=== PATIENT | female | born 2000 | race Caucasian/White ===

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

== ENCOUNTER 2021-01-14 15:26 | Emergency (ER) | payer BC, MEDICAID, SELFPAY ==
[2021-01-14 15:32] VITALS: BP 137/106; PULSE 109; RESP 18; TEMP 36.6; O2SAT 99; BMI 34.4
--- NOTE | 2021-01-14 16:04 | ED_ITS ---
HPI - Skin/Abscess/Foreign Bdy General: Chief complaint: Skin/Abscess/Foreign Body Stated complaint: BURNING RASH ON FACE Time Seen by Provider: 01/14/21 15:39 History of Present Illness: HPI narrative: Patient is a 20-year-old female comes to the ED with rash in between nose and top of mouth. Symptoms started proximately a week and a half ago. She had red pimple only like rash just above her mouth. She went and saw her PCP and they gave her some mupirocin. After taking that for couple days the rash continued to get worse. She then went back and saw her PCP approximately 3 days ago when they told her to stop the mupirocin and they gave her a prescription for amoxicillin and acyclovir. Patient's rash has not improved yet. She states she has never had a rash like this before. She did just recently start a job before this rash started and she has to wear a mask all the time which is unusual for her that could have caused the rash. Associated symptoms: Deny chills, fever(s), nausea or vomiting Review of Systems Const: Denies: fever(s), chills or fatigue Eyes: Denies: change in vision or eye discomfort ENMT: Denies: throat pain, odynophagia, nasal discharge or nasal congestion Card: Denies: chest pain, palpitations, edema, swelling of feet/ankles, dyspnea on exertion or orthopnea Resp: Denies: dyspnea, productive cough or non-productive cough GI: Denies: abdominal pain, nausea, vomiting, diarrhea, constipation or hematochezia : Denies: flank pain, dysuria or hematuria Musc: Denies: neck pain, back pain or extremity swelling Skin/Breast: Reports: rash (between mouth and nose) and erythema (between mouth and nose); Denies: new lesions Neuro: Denies: headache(s), numbness in extremities or weakness in extremities Physical Exam Const: COMMON NORMALS: no acute distress, patient oriented x3, healthy appearing and alert GENERAL APPEARANCE: cooperative and comfortable HENMT: COMMON NORMALS: normocephalic HEAD & SCALP: normocephalic FACE & SINUS: erythema bilaterally upper lip (Perioral dermatitis.) MOUTH: Normal oral and palatal mucosa present THROAT: posterior oropharynx normal and uvula midline Neck/C-Spine: COMMON NORMALS: supple GENERAL: Yes normal visual inspection Resp: COMMON NORMALS: normal respiratory effort, No retractions, No use of accessory muscles and clear to auscultation bilaterally AUSCULTATION: clear to auscultation bilaterally Cardio: COMMON NORMALS: regular rate, regular rhythm, S1 normal heart sound present, S2 normal heart sound present, No gallops present (Cardio), No clicks present (Cardio), No murmurs present (Cardio) and Peripheral pulses 2+ throughout RATE: regular rate RHYTHM: regular rhythm HEART SOUNDS: S1 normal heart sound present and S2 normal heart sound present PERIPHERAL PULS ES: Peripheral pulses 2+ throughout GI: COMMON NORMALS: Normal to inspection, nondistended, normoactive bowel sounds present, Soft to palpation, non-tender and no masses PALPATION: Yes Soft to palpation : COMMON NORMALS: Yes no CVA tenderness BLADDER/KIDNEY EXAM: Yes no CVA tenderness Back/Pelvis: COMMON NORMALS: no CVA tenderness Extremity: COMMON NORMALS: normal to inspection Neuro: COMMON NORMALS: patient oriented x3 SENSORIUM/ORIENTATION: Yes alert Skin: NARRATIVE SKIN EXAM: Patient has erythema with a multitude of raised small pustules. Findings suggestive of perioral dermatitis. GENERAL SKIN EXAM: dry skin Course Vital Signs: Vital signs: Vital Signs Temperature 97.9 F 01/14/21 15:32 Pulse Rate 109 H 01/14/21 15:32 Respiratory Rate 18 01/14/21 15:32 Blood Pressure 137/106 01/14/21 15:32 Pulse Oximetry 99 01/14/21 15:32 MDM - Skin/Abscess/Foreign Bdy MDM Narrative: Medical decision making narrative: Patient is an 19-year-old female comes to the ED with a rash on her upper lip. Rash has been going on for a week and a half. Exam findings suggestive of perioral dermatitis. Patient appears nontoxic and in no acute distress. Vitals are stable. Patient discharged home in sent with a prescription for clindamycin 1% lotion and doxycycline. Follow-up PCP in 7 to 10 days for reevaluation. Patient understood and agree with plan. Discharge Plan Discharge Patient Disposition: Home Clinical Impression: Perioral dermatitis Condition: Stable Prescriptions: New doxycycline hyclate 100 mg capsule 100 mg PO BID 10 Days Qty: 20 RF: 0 clindamycin phosphate 1 % lotion 1 applic topical DAILY PRN (Reason: rash) Qty: 60 RF: 0 Discharge Orders: Discharge ED (Routine); Ordered 01/14/21 Ordered By: Hiren Walker Referrals: Giovanna Duggan FNP [Primary Care Provider] - Discharge Diet: Regular Discharge Activity: Resume usual activity Patient Instructions: Dermatitis (ED) Activity Restrictions/Additional Instructions: Follow-up with medical provider as directed in 7 to 10 days reevaluation. Take medications as prescribed. You can stop taking the prescribed amoxicillin and acyclovir. Return to the ER or your medical provider if condition worsens. Please read and understand discharge instructions. Thank you for choosing [facility] for your healthcare needs today. Please realize this is an emergency room and that we are providing you with a medical screening exam and this may not be complete and all inclusive of all the testing and or work up that you may need to determine your ailment or severity of your illness. It is very important that you follow up as instructed or that you return to the Emergency Department should you have concerns or if your condition changes or worsens in any way. Coding Level of Care Code ED Radiology Transcriptionist for Maurice Fwd Exam Comprehensive
== END 2021-01-14 16:37 | disposition home or self-care (01) ==
PROVIDERS: Emergency Provider Physician Assistant; PCP Nurse Practitioner Family
DX: L71.0 Perioral dermatitis (principal)
CPT/HCPCS: 99282

== ENCOUNTER 2021-02-01 14:57 | Emergency (ER) | payer BC, MEDICAID, SELFPAY ==
--- NOTE | 2021-02-01 15:11 | PC.NURSE ---
PPE DAWNED EKG PERFORMED.
[2021-02-01 15:14] VITALS: BP 133/89; PULSE 112; RESP 20; TEMP 36.7; O2SAT 100; BMI 34.6
--- NOTE | 2021-02-01 15:40 | ED_ITS ---
HPI - General Adult General: Chief complaint: Chest Pain Stated complaint: Chest Tightness, High BP Time Seen by Provider: 02/01/21 15:20 History of Present Illness: HPI narrative: CC: Chest Pain HPI: This is a [20] yo patient hx of marijuana use presenting to the ED complaining of L sided sharp chest pain with radiation to the L shoulder at 7am. No associated with shortness of breath, chest pain or dyspnea on exertion. Pain is not tearing in nature and does not radiate to the back. Pain not associated with vomiting or PO intake. Denies any recent sympathomimetic drug use. Patient denies any cough. Denies palpitations, dysphagia, diaphoresis, radiation of pain to bilateral arms, jaw. Denies F/N/V/D. Patient denies any recent immobility, surgery, unilateral leg swelling, or prior PE. Patient denies any orthopnea. Onset: 1 day ago Duration: 2 episodes in the last day Location: home Severity: mild/moderate Review of Systems Narrative: Constitutional: No fever, no chills. HEENT: No vision changes, no sore throat. CV: +chest pain, no palpitations. PULM: No cough, No dyspnea. GI: No abdominal pain, no N/V/D. : No dysuria, no frequency, no hematuria. MSKEL: No arthralgias, no edema. SKIN: No new rashes, no lesions. NEURO: No headache, no focal weakness. HEME: No easy bleeding or bruising. PSYCH: No change in mood or affect. PFS ED PFSH: Medical History (Updated 02/06/21 @ 11:15 by Jessi Galdamez APRN) Encounter for tobacco use cessation counseling Family History (Updated 02/06/21 @ 10:11 by Christina Cox LPN) Other Family history of premature coronary artery disease Hypertension Stroke Female Reproductive History: Date of last menstrual period: 01/30/21 Physical Exam Narrative: EXAM NARRATIVE: Head: Atraumatic, normocephalic Eyes: PERRL, EOMI, conjunctiva without injection ENT: Throat without erythema, lesions or exudate, MMM NECK: Supple, trachea midline, no JVD LUNGS: LCTA CV: Sinus tachycardia, S1,S2, no murmurs, rubs, gallops. 2+ peripheral pulses in UEs ABDOMEN: Soft, nontender, nondistended, BS x4, no rigidity, no guarding, no rebound EXTREMITY: Normal ROM, no pitting edema, no calf tenderness to palpation SKIN: No rash or erythema NEURO: Awake and alert. No focal motor deficits. PSYCH: Normal mood and affect. Course Vital Signs: Vital signs: Vital Signs Temperature 98.0 F 02/01/21 15:14 Pulse Rate 90 02/01/21 17:53 Respiratory Rate 20 H 02/01/21 17:53 Blood Pressure 116/73 02/01/21 17:53 Pulse Oximetry 100 02/01/21 17:53 MDM - General Adult MDM Narrative: Medical decision making narrative: [20]yo patient w/ hx of vaping presenting to the ED with evaluation of two episodes of chest pain, most recently at 7:30am. HDS w/ mild tachycardia, pulse 2+ radially bilaterally, no signs of fluid overload, AAOx3, neuro exam intact. Given History and Exam today I have no suspicion for ACS, Pneumothorax, Pneumonia, Pulmonary Embolus, Tamponade, Aortic Dissection or other emergent problems as a cause for this presentation. Workup: ECG, CXR, CBC, BMP, Troponin Interventions: Tylenol 500mg Findings: ECG: No overt evidence of STEMI, hyperacute T waves, localizable STD or T wave inversions. No evidence of Brugada?s sign, delta wave, epsilon wave, significantly prolonged QTc, or malignant arrhythmia. No Q waves. Other Labs unremarkable for emergent problems. CXR: Without PTX, PNA, or widened mediastinum Last Stress Test: never Last Heart Catheterization: never HEART Score: 0 [5:45] On reassessment, the patient is HDS, no complaints of persistent chest pain in the ED after evaluation. ECG is non-ischemic. Workup today is unremarkable. Doubt ACS/PE or other emergent causes of chest pain. Doubt ACS/PE or other emergent causes of chest pain. No suspicion for aortic dissection given no widened mediastinum, 2+ upper extremity pulses, or tearing pain. No suspicion for PE given no pleuritic chest pain, recent immobilization or surgery hemoptysis, or other VTE risk factors. EKG is non-ischemic. XR normal. Suspect that patient is tachycardic secondary to anxiety concerns for her chest pain. Although patient is tachycardiac, I do not suspect this time that the tachycardia secondary to pulmonary embolism patient does not have lower extremity swelling, no family risk factors for hypercoagulability, no recent surgery or immobilization. Patient continued to be satting without any issues, no complaints of shortness of breath, lightheadedness today. I have given patient follow up with our correctional case records supervisor to be seen by our provider Dr. Kline as patient would like to establish care with a new PCP and evaluate chest pain. Patient aware of a call from our correctional case records supervisor to schedule for appointment(s) and verbalizes understanding of the importance of following up. Rx: Tylenol 500mg Q6Hrs x 4 days PRN pain Disposition: Discharge. Strict return precautions discussed with the patient with full understanding. Advised patient to follow up promptly with a primary care provider in 24-48 hrs if the patient has persistent symptoms. Given return instructions for any crushing/tearing chest pain, focal weakness, syncope or any new or concerning issues. Lab Data: Labs: Lab Results 02/01/21 02/01/21 02/01/21 16:03 16:03 16:03 WBC 10.7 10^3/uL 10^3 /uL (4.5-13.0) RBC 5.35 10^6/uL H 10 ^6/uL (4.1-5.3) Hgb 16.1 g/dL H g/dL (11.5-15.3) Hct 48.1 % H % (37.0-47.0) MCV 89.9 fl fl (81-99) MCH 30.1 pg pg (28.0-34.0) MCHC 33.5 g/dL g/dL (30.0-36.0) RDW 11.9 % L % (12.1-15.1) Plt Count 383 10^3/cmm 10^3 /cmm (130-400) MPV 10.5 fL H fL (7.4-10.4) Neut % (Auto) 63.7 % % Lymph % (Auto) 21.9 % % Ulster % (Auto) 10.8 % % Eos % (Auto) 2.7 % % Baso % (Auto) 0.7 % % Neut # (Auto) 6.81 10^3/uL 10^3 /uL (1.8-8.0) Lymph # (Auto) 2.3 10^3/uL 10^3/ uL (1.5-6.5) [place] # (Auto) 1.2 10^3/uL H 10^ 3/uL (0.2-0.9) Eos # (Auto) 0.3 10^3/uL 10^3/ uL (0.0-0.8) Baso # (Auto) 0.1 10^3/uL 10^3/ uL (0.0-0.1) Nucleated RBC % (a uto) 0 % % Nucleated RBCs # 0.0 /100WBC /100W BC Sodium 137 mmol/L mmol/L (136-145) Potassium 4.2 mmol/L mmol/L (3.5-5.1) Chloride 100 mmol/L mmol/L (98-107) Carbon Dioxide 24 mmol/L mmol/L (22-29) Anion Gap 17.2 (5-19) BUN 11 mg/dL mg/dL (6-20) Creatinine 0.7 mg/dL mg/dL (0.5-0.9) GFR Calculation 107.8 mL/min mL/m in (90-130) Glucose 84 mg/dL mg/dL (65-115) Calculated Osmolal ity 283 mOsm/kg L mOs m/kg (285-295) Calcium 9.4 mg/dL mg/dL (8.5-10.5) Troponin T Gen 5 n g/L 6 ng/L ng/L (0-10) Discharge Plan Discharge Patient Disposition: Home Clinical Impression: Chest pain Condition: Stable Prescriptions: No Action pantoprazole [Protonix] 40 mg tablet,delayed release (DR/EC) 40 mg PO DAILY Qty: 90 RF: 0 clindamycin phosphate 1 % lotion 1 applic topical DAILY PRN (Reason: rash) Qty: 60 RF: 0 Discharge Orders: Discharge ED (Routine); Ordered 02/01/21 Ordered By: Barak Bautista Referrals: Giovanna Duggan FNP [Primary Care Provider] - Discharge Diet: Advance as tolerated Discharge Activity: Resume usual activity Patient Instructions: Chest Pain (ED) Activity Restrictions/Additional Instructions: Come back to the emergency room if your chest pain worsens, have any fever or chills, worsening shortness of breath, worsening exertional lightheadedness, or any new or concerning complaints. Coding Level of Care Code ED Well Tester for Sissyg Kathia
--- NOTE | 2021-02-01 15:40 | ECG_ITS ---
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 Requested By: Barak Bautista Order Number: [id number] Jean MD: NORMA JASON Measurements Intervals [place] Rate: 93 P: 54 [place]: 146 QRS: 72 QRSD: 92 T: 49 QT: 338 QTc: 421 Interpretive Statements SINUS RHYTHM WITH SINUS ARRHYTHMIA POSSIBLE LEFT ATRIAL ENLARGEMENT [-0.1mV P-WAVE IN V1/V2] POSSIBLE LEFT VENTRICULAR HYPERTROPHY [VOLTAGE CRITERIA PLUS LAE OR QRS WIDENING] INTERPRETATION BASED ON A DEFAULT AGE OF 40 YEARS No previous ECG available for comparison Electronically Signed On 02-02-2021 14:35:57 SECONDARY SPECIAL EDUCATION TEACHER by NORMA JASON [id number] f
[2021-02-01 16:10] LABS: Basophils # 0.1 10^3/uL (0.0-0.1); Basophils % 0.7 %; Eosinophils # 0.3 10^3/uL (0.0-0.8); Eosinophils % 2.7 %; Hematocrit 48.1 % (37.0-47.0); Hemoglobin 16.1 g/dL (11.5-15.3); Lymphocytes # 2.3 10^3/uL (1.5-6.5); Lymphocytes % 21.9 %; Mean Corpuscular HGB Conc 33.5 g/dL (30.0-36.0); Mean Corpuscular Hemoglobin 30.1 pg (28.0-34.0); Mean Corpuscular Volume 89.9 fl (81-99); Mean Platelet Volume 10.5 fL (7.4-10.4); Monocytes # 1.2 10^3/uL (0.2-0.9); Monocytes % 10.8 %; Neutrophils # 6.81 10^3/uL (1.8-8.0); Neutrophils % 63.7 %; Nucleated Red Blood Cells % 0 %; Platelet Count 383 10^3/cmm (130-400); Red Blood Count 5.35 10^6/uL (4.1-5.3); Red Cell Distribution Width 11.9 % (12.1-15.1); White Blood Count 10.7 10^3/uL (4.5-13.0)
[2021-02-01] MEDS: acetaminophen 500 mg Tablet 1000 MG PO (16:18)
[2021-02-01] MEDS: sodium chloride 0.9% 1,000 ML 999 ML IV (16:20)
[2021-02-01 16:22] VITALS: BP 130/89; RESP 18; O2SAT 98
--- NOTE | 2021-02-01 16:30 | PC.NURSE ---
Bilateral blood pressures taken. RUE 130/89, LUE 135/87.
[2021-02-01 16:35] LABS: Troponin T (5th) Once 6 ng/L (0-10)
[2021-02-01 16:36] LABS: Anion Gap 17.2 (5-19); Blood Urea Nitrogen 11 mg/dL (6-20); Calcium 9.4 mg/dL (8.5-10.5); Carbon Dioxide 24 mmol/L (22-29); Chloride 100 mmol/L (98-107); Glomerular Filtration Rate 107.8 mL/min (90-130); Glucose 84 mg/dL (65-115); Osmolality Calculated 283 mOsm/kg (285-295); Potassium 4.2 mmol/L (3.5-5.1); Sodium 137 mmol/L (136-145)
[2021-02-01 17:53] VITALS: BP 116/73; PULSE 90; RESP 20; O2SAT 100
--- NOTE | 2021-02-05 13:49 | DCPLANNER ---
retail support manager had message to schedule a follow up appointment for patient with Dr. Kline. retail support manager called the office of Dr. Kline, spoke with Sara, gave clinic patients information. A follow up appointment was scheduled for Saturday, February 06, 2021 at 10:00 with ENGINEERING ASSISTANT, Jocelynn Galdamez. Clinic will call patient with appointment information.
--- NOTE | 2021-03-02 09:16 | DCPLANNER ---
Patient had a follow up appointment scheduled for 02.06.21 with Ana Galdamez - patient did attend appointment.
== END 2021-02-01 18:04 | disposition home or self-care (01) ==
PROVIDERS: Emergency Provider Emergency Medicine; PCP Nurse Practitioner Family
DX: R07.9 Chest pain, unspecified (principal); R00.0 Tachycardia, unspecified; F12.90 Cannabis use, unspecified, uncomplicated
CPT/HCPCS: 80048; 84484; 85025; 93005; 96360; 99283; J7030